=== PATIENT | female | born 1930 | race Caucasian/White ===

== ENCOUNTER 2019-03-01 19:44 | Emergency (ER) | payer MEDICARE, OTHER ==
[~2019-03-01] VITALS: Ht 167.7 cm; Wt 75.0 kg
[2019-03-01] MEDS ORDERED: NS IV 1000 ML 1,000 ML ONE (20:15)
--- NOTE | 2019-03-01 20:15 | NUR ---
PT. BLOOD PRESSURE DROPPED TO 58/35 AND PT BECAME UNRESPONSIVE. IV FLUIDS WERE STARTED WIDE AND THE PT. STARTED RESPONDING AND NOW HERE BP IS 132/61
[2019-03-01 20:33] LABS: HEMATOCRIT 24 % (35-52); HEMOGLOBIN 7.6 G/DL (11.5-16.0); MEAN CORPUSCULAR HEMOGLOBIN 26 PG (25-34); MEAN CORPUSCULAR HGB CONC 31 G/DL (32-36); MEAN CORPUSCULAR VOLUME 82 FL (80-99); MEAN PLATELET VOLUME 11.1 FL (7.4-10.4); MONOCYTES % (AUTO) 11 % (0-12); NEUTROPHILS % (AUTO) 75 % (42-75); PLATELET COUNT 171 10^3/uL (130-400); RED CELL DISTRIBUTION WIDTH 15.2 % (10.0-14.5); WHITE BLOOD COUNT 4.1 10^3/uL (4.3-11.0)
--- NOTE | 2019-03-01 20:33 | ED General ---
General Chief Complaint: Trauma-Non Activation Stated Complaint: FALL Source of Information: Patient, EMS History of Present Illness Date Seen by Provider: Mar 01, 2019 Time Seen by Provider: 19:48 Initial Comments 88-year-old female presenting by EMS after having a fall at home. She states that she's been having increased swelling in her legs and increased weakness. She was having weakness in his legs which caused her to have a fall tonight. She denies losing consciousness but is not sure. She states that she did have a lot of bleeding and has pain to her head and face where she had hit her head and has bleeding. She does take Xarelto as a blood thinner for atrial fibrillation. Allergies and Home Medications Allergies Coded Allergies: No Known Drug Allergies (Unverified , 03/01/19) Patient Home Medication List Home Medication List Reviewed: Yes Review of Systems Review of Systems Constitutional: No chills, No fever; malaise, weakness (general) EENTM: No ear discharge, No ear pain, No blurred vision, No double vision, No eye pain, No dental problems, No hoarseness, No epistaxis, No nose congestion, No nose pain, No throat pain Respiratory: No cough, No dyspnea on exertion, No short of breath, No stridor, No wheezing Cardiovascular: No chest pain; edema (BLE and worse in last few days) Gastrointestinal: No abdominal pain; nausea; No vomiting Genitourinary: No decreased output, No dysuria Musculoskeletal: No neck pain Skin: change in color (bruising to face and swelling to scalp and head from bruising and scalp laceration) Psychiatric/Neurological: Headache Hematologic/Lymphatic: Easy Bleeding (on xarelto), Easy Bruising (on xarelto) Past Tseejlw-Uuzhtm-Ufcpty Hx Past Med/Social Hx: Reviewed Nursing Past Med/Soc Hx Past Medical History Cardiac, Coronary Stent, Pacemaker Cardiomyopathy, Coronary Artery Disease, High Cholesterol, Hypertension Physical Exam Vital Signs Vital Signs - First Documented 03/01/19 03/01/19 19:47 22:34 Temp 35.4 Pulse 80 Resp 16 B/P (MAP) 138/85 (102) Pulse Ox 100 O2 Delivery Nasal Cannula O2 Flow Rate 2.00 Capillary Refill : Height, Weight, BMI Height: '" Weight: lbs. oz. kg; BMI Method: General Appearance: No Apparent Distress, WD/WN, Anxious, Chronically ill, Mild Distress HEENT: PERRL/EOMI, Normal ENT Inspection, Pharynx Normal Neck: Non Tender, Supple Respiratory: Chest Non Tender, Normal Breath Sounds, No Accessory Muscle Use, No Respiratory Distress Cardiovascular: Other (paced rhythm ) Gastrointestinal: Normal Bowel Sounds, No Pulsatile Mass, Soft Extremity: Pedal Edema (3+ pitting edema BLE) Neurologic/Psychiatric: Alert, Oriented x3, burrer hand II-XII Norm as Tested Skin: Cool, Pallor Procedures/Interventions Wound Location: Scalp Wound Length (cm): 1.1 Wound's Depth, Shape: sub Q Wound Explored: clean Staple Repair: Stapler 35W Number of Sutures: 4 Layer Closure?: 1 Progress/Results/Core Measures Suspected Sepsis SIRS Temperature: Pulse: Respiratory Rate: Laboratory Tests 03/01/19 20:23: White Blood Count 4.1L Blood Pressure / Mean: Laboratory Tests 03/01/19 20:23: Creatinine 1.78H, INR Comment 2.7H, Platelet Count 171, Total Bilirubin 0.4 Results/Orders Lab Results Laboratory Tests Test 03/01/19 20:23 Range/Units White Blood Count 4.1 L 4.3-11.0 10^3/uL Red Blood Count 2.97 L 4.35-5.85 10^6/uL Hemoglobin 7.6 L 11.5-16.0 G/DL Hematocrit 24 L 35-52 % Mean Corpuscular Volume 82 80-99 FL Mean Corpuscular Hemoglobin 26 25-34 PG Mean Corpuscular Hemoglobin Concent 31 L 32-36 G/DL Red Cell Distribution Width 15.2 H 10.0-14.5 % Platelet Count 171 130-400 10^3/uL Mean Platelet Volume 11.1 H 7.4-10.4 FL Neutrophils (%) (Auto) 75 42-75 % Lymphocytes (%) (Auto) 11 L 12-44 % Monocytes (%) (Auto) 11 0-12 % Eosinophils (%) (Auto) 2 0-10 % Basophils (%) (Auto) 1 0-10 % Neutrophils # (Auto) 3.1 1.8-7.8 X 10^3 Lymphocytes # (Auto) 0.5 L 1.0-4.0 X 10^3 Monocytes # (Auto) 0.4 0.0-1.0 X 10^3 Eosinophils # (Auto) 0.1 0.0-0.3 10^3/uL Basophils # (Auto) 0.0 0.0-0.1 10^3/uL Prothrombin Time 29.8 H 12.2-14.7 SEC INR Comment 2.7 H 0.8-1.4 Activated Partial Thromboplast Time 39 H 24-35 SEC Sodium Level 123 *L 135-145 MMOL/L Potassium Level 4.9 3.6-5.0 MMOL/L Chloride Level 90 L 98-107 MMOL/L Carbon Dioxide Level 23 21-32 MMOL/L Anion Gap 10 5-14 MMOL/L Blood Urea Nitrogen 32 H 7-18 MG/DL Creatinine 1.78 H 0.60-1.30 MG/DL Estimat Glomerular Filtration Rate 27 BUN/Creatinine Ratio 18 Glucose Level 133 H 70-105 MG/DL Calcium Level 8.3 L 8.5-10.1 MG/DL Corrected Calcium 9.1 8.5-10.1 MG/DL Total Bilirubin 0.4 0.1-1.0 MG/DL Aspartate Amino Transf (AST/SGOT) 21 5-34 U/L Alanine Aminotransferase (ALT/SGPT) 12 0-55 U/L Alkaline Phosphatase 40 40-136 U/L Total Protein 4.8 L 6.4-8.2 GM/DL Albumin 3.0 L 3.2-4.5 GM/DL My Orders Orders - ISH HERRERA MD Comprehensive Metabolic Panel (03/01/19 20:14) Ua Culture If Indicated (03/01/19 20:14) Ed Iv/Invasive Line Start (03/01/19 20:14) Cbc With Automated Diff (03/01/19 20:14) Protime With Inr (03/01/19 20:14) Partial Thromboplastin Time (03/01/19 20:14) Ekg Tracing (03/01/19 20:14) Continuous Ekg Monitoring (03/01/19 20:14) Ct Head/Face/Cervical Wo (03/01/19 20:14) Ns Iv 1000 Ml (Sodium Chloride 0.9%) (03/01/19 20:15) Red Cells Leukocytes Reduced (03/01/19 20:56) Vital Signs: Special (Order) (03/01/19 20:56) Consent-Obtain Consent For (03/01/19 20:56) Monitor S/S Transfusion Reacti (03/01/19 20:56) Ns Iv 500 Ml (Sodium Chloride 0.9%) (03/01/19 20:56) Type And Screen (03/01/19 20:56) Hemoglobin (03/01/19 22:54) Ns Iv 1000 Ml (Sodium Chloride 0.9%) (03/01/19 23:00) Medications Given in ED Current Medications Medications Dose Ordered Sig/Maty Route Start Time Stop Time Status Last Admin Dose Admin Sodium Chloride 1,000 ml @ STK-MED ONCE .ROUTE 03/01/19 20:15 03/01/19 20:19 DC 03/01/19 20:15 2,015 MLS/HR Vital Signs/I&O 03/01/19 03/01/19 19:47 22:34 Temp 35.4 36.7 Pulse 80 60 Resp 16 B/P (MAP) 138/85 (102) 147/93 Pulse Ox 100 100 O2 Delivery Nasal Cannula Nasal Cannula O2 Flow Rate 2.00 03/02/19 00:00 Intake Total 2000 ml Balance 2000 ml Capillary Refill : Progress Note #1: Progress Note check labs and CT head,face, cervical spine to evaluate for fractures or intracranial hemorrhage. Progress Note #2: Progress Note Before the patient could leave the room to get to CT she had a lot of bleeding from a small laceration on her left scalp so I cleaned it and then using just the stapler I applied 4 ariana to close the laceration to the anterior left frontal scalp to control the bleeding. Then a pressure dressing was applied to help with the bleeding and swelling. shortly after this and before she could go to CT she had a drop in her blood pressure and became unresponsive. With this she was placed in trendelenberg an given 2 L NS by pressure bag infusion. This did help with her blood pressure and she became responsive again. She had improved responsiveness and was able to tolerate transport to CT. After return from CT she had no evidence of actute hemorrhage on imaging. By this point her labs had come back showing hyponatremia with a sodium of 123. Her hemoglobin also came back low at 7.6. This likely was representing an acute anemia with a low hemoglobin from acute blood loss. When reviewing the results with the patient and family they requested to go to [facility] since that is w here her cytogenetic technician and primary providers are located. Progress Note #3: Progress Note Discussed with Dr. Flynn from [facility] emergency department and he accepted the patient in transfer ECG Initial ECG Impression Date: Mar 01, 2019 Initial ECG Impression Time: 20:57 Initial ECG Rate: 60 Initial ECG Comparisson: No Previous ECG Available Comment Ventricular paced complexes with a heart rate is 60 bpm. QT interval 496 ms QTc interval 496 ms. There is no acute ST elevation. There is some artifact on the tracing. There is no prior tracing available for comparison. Diagnostic Imaging Diagonstic Imaging: CT Plain Films/CT/US/NM/MRI: facial bones, c-spine, head Comments NAME: UMER FRYE [facility] REC#: [id number] PT STATUS: REG ER : [id number] PHYSICIAN: ISH HERRERA MD ADMIT DATE: 03/01/19/ER FS Draft Date of Exam:03/01/19 CT HEAD/FACE/CERVICAL WO PROCEDURE: CT head, face, and cervical spine without contrast. TECHNIQUE: Multiple contiguous axial images were obtained through the head, neck, and facial bones without the use of intravenous contrast. Sagittal and coronal reformations through the cervical spine and facial bones were also performed. Auto Exposure Controls were utilized during the CT exam to meet ALARA standards for radiation dose reduction. INDICATION: Fall with trauma to head. COMPARISON: None FINDINGS: CT head: The ventricles and cortical sulci are diffusely prominent, compatible with age-related volume loss. There are confluent areas of abnormal, low attenuation in the periventricular white matter. This is consistent with small vessel ischemic changes; age-indeterminate. There is no prior study available for comparison. There is no midline shift or mass-effect. No acute intra-axial hemorrhage is seen. There are no abnormal areas of increased or decreased density to suggest acute hemorrhage or edema. No extra-axial masses or collections are present. The bony calvarium is intact. CT FACIAL BONES: There is acute appearing fracture of the bilateral nasal bones, left more conspicuous than right (image 84, series 8). There is no significant displacement of the fracture fragments. Nasal septum is mildly deviated to the left anteriorly, but this appears to be on a congenital or developmental basis. Nasal septum otherwise appears to be intact. There is mild soft tissue swelling overlying the nose. No unexpected radiopaque foreign bodies are seen. A small amount of soft tissue emphysema is also noted. Paranasal sinuses show minimal mucosal thickening of the right maxillary sinus. There may be small air-fluid level within the right maxillary sinus as well. Remainder of the paranasal sinuses show minimal scattered mucosal thickening. There is no fracture of the paranasal sinuses. There is no fracture of the orbits. Globes are symmetric. Patient is status post bilateral cataract surgery. There is periorbital soft tissue edema asymmetrically on the left. No unexpected radiopaque foreign bodies are identified. Zygomatic arches are intact bilaterally. Bilateral medial and lateral pterygoid plates are also intact. Degenerative changes of the bilateral temporomandibular joints are noted. Mandible is otherwise intact without evidence acute fracture or dislocation. CT cervical spine: Evaluation of the static alignment shows mild grade 1 anterolisthesis at the C4-C5 and C7-T1 levels. There is no evidence of jumped facets. Vertebral body heights are maintained. There is no evidence of acute fracture. No bony fragments are seen within the spinal canal. There are moderate multilevel degenerative changes consisting of intervertebral disc height loss as well as multilevel anterior and posterior disc osteophyte complex formations and multilevel facet arthropathy. Pre and paravertebral soft tissue structures are unremarkable. Note is made of calcified carotid atherosclerosis. Included portions of the lung bases show no additional acute abnormalities. IMPRESSION: 1. No acute intracranial abnormality. No CT evidence of mass, acute infarct or intracranial hemorrhage. 2. Small vessel ischemic changes in the periventricular and subcortical white matter; likely chronic. 3. Acute nondisplaced fractures of the bilateral nasal bones. 4. No acute fracture or dislocation of the cervical spine. 5. Mild mucosal thickening with small air-fluid level in the right maxillary sinus. Please correlate for underlying acute sinusitis. Dictated on workstation # [id number] Dict: 03/01/192056 Trans: 03/01/19 2108 DOTTIE [id number] Interpreted by: BEST MENDOZA MD Electronically signed by: Departure Impression Primary Impression: Anemia associated with acute blood loss Additional Impressions: Scalp laceration Qualified Codes: S01.01XA - Laceration without foreign body of scalp, initial encounter Skin tear Fall at home Qualified Codes: W19.XXXA - Unspecified fall, initial encounter; Y92.009 - Unspecified place in unspecified non-institutional (private) residence as the place of occurrence of the external cause Hyponatremia Disposition: 02 XFER SHT-TRM HOSP Condition: Stable Transfer Transfer Reason: Patient preference Time Spoke to Accepting Phy: 22:16 Transfer Progress Notes D/w Dr. Flynn in the ED at [facility] and since the patient had a fall at home she would be considered a trauma pt and need to come to the ED there initially before admit for her other issues. Transfer Facility: [facility] Method of Transfer: EMS ISH HERRERA MD Mar 01, 2019 20:33
[2019-03-01 20:34] LABS: BASOPHILS % (AUTO) 1 % (0-10); EOSINOPHILS # (AUTO) 0.1 10^3/uL (0.0-0.3); EOSINOPHILS % (AUTO) 2 % (0-10); LYMPHOCYTES # (AUTO) 0.5 X 10^3 (1.0-4.0); LYMPHOCYTES % (AUTO) 11 % (12-44); MONOCYTES # (AUTO) 0.4 X 10^3 (0.0-1.0); NEUTROPHILS # (AUTO) 3.1 X 10^3 (1.8-7.8)
[2019-03-01 20:47] LABS: INR 2.7 (0.8-1.4); PROTHROMBIN TIME PATIENT 29.8 SEC (12.2-14.7)
[2019-03-01] MEDS ORDERED: NS IV 500 ML 500 ML IV SCH (20:56)
[2019-03-01 21:03] LABS: BILIRUBIN,TOTAL 0.4 MG/DL (0.1-1.0); CALCIUM 8.3 MG/DL (8.5-10.1); CREATININE SERUM 1.78 MG/DL (0.60-1.30); POTASSIUM 4.9 MMOL/L (3.6-5.0); TOTAL PROTEIN 4.8 GM/DL (6.4-8.2)
--- NOTE | 2019-03-01 21:08 | Diagnostic Imaging Report ---
PROCEDURE: CT head, face, and cervical spine without contrast. TECHNIQUE: Multiple contiguous axial images were obtained through the head, neck, and facial bones without the use of intravenous contrast. Sagittal and coronal reformations through the cervical spine and facial bones were also performed. Auto Exposure Controls were utilized during the CT exam to meet ALARA standards for radiation dose reduction. INDICATION: Fall with trauma to head. COMPARISON: None FINDINGS: CT head: The ventricles and cortical sulci are diffusely prominent, compatible with age-related volume loss. There are confluent areas of abnormal, low attenuation in the periventricular white matter. This is consistent with small vessel ischemic changes; age-indeterminate. There is no prior study available for comparison. There is no midline shift or mass-effect. No acute intra-axial hemorrhage is seen. There are no abnormal areas of increased or decreased density to suggest acute hemorrhage or edema. No extra-axial masses or collections are present. The bony calvarium is intact. CT FACIAL BONES: There is acute appearing fracture of the bilateral nasal bones, left more conspicuous than right (image 84, series 8). There is no significant displacement of the fracture fragments. Nasal septum is mildly deviated to the left anteriorly, but this appears to be on a congenital or developmental basis. Nasal septum otherwise appears to be intact. There is mild soft tissue swelling overlying the nose. No unexpected radiopaque foreign bodies are seen. A small amount of soft tissue emphysema is also noted. Paranasal sinuses show minimal mucosal thickening of the right maxillary sinus. There may be small air-fluid level within the right maxillary sinus as well. Remainder of the paranasal sinuses show minimal scattered mucosal thickening. There is no fracture of the paranasal sinuses. There is no fracture of the orbits. Globes are symmetric. Patient is status post bilateral cataract surgery. There is periorbital soft tissue edema asymmetrically on the left. No unexpected radiopaque foreign bodies are identified. Zygomatic arches are intact bilaterally. Bilateral medial and lateral pterygoid plates are also intact. Degenerative changes of the bilateral temporomandibular joints are noted. Mandible is otherwise intact without evidence acute fracture or dislocation. CT cervical spine: Evaluation of the static alignment shows mild grade 1 anterolisthesis at the C4-C5 and C7-T1 levels. There is no evidence of jumped facets. Vertebral body heights are maintained. There is no evidence of acute fracture. No bony fragments are seen within the spinal canal. There are moderate multilevel degenerative changes consisting of intervertebral disc height loss as well as multilevel anterior and posterior disc osteophyte complex formations and multilevel facet arthropathy. Pre and paravertebral soft tissue structures are unremarkable. Note is made of calcified carotid atherosclerosis. Included portions of the lung bases show no additional acute abnormalities. IMPRESSION: 1. No acute intracranial abnormality. No CT evidence of mass, acute infarct or intracranial hemorrhage. 2. Small vessel ischemic changes in the periventricular and subcortical white matter; likely chronic. 3. Acute nondisplaced fractures of the bilateral nasal bones. 4. No acute fracture or dislocation of the cervical spine. 5. Mild mucosal thickening with small air-fluid level in the right maxillary sinus. Please correlate for underlying acute sinusitis. Dictated by: Dictated on workstation # [id number]
--- NOTE | 2019-03-01 21:12 | NUR ---
PT. AND FAMILY REPORTED THEY WANT TO GO THE [facility] BECAUSE THAT IS WHERE HER DOCTOR IS. HER DOCTOR IS DOCTOR MILLER.
[2019-03-01 22:34] VITALS: BP 147/93
--- NOTE | 2019-03-01 22:44 | NUR ---
REPORT GIVEN TO DIANNA. PT. WILL BE GOING TO [facility].
[2019-03-01] MEDS ORDERED: NS IV 1000 ML 1,000 ML IV SCH (23:00)
== END 2019-03-01 23:07 | disposition short-term general hospital (02) ==
LOC: ER FS 19:47
DX: S01.01XA Laceration without foreign body of scalp, initial encounter (principal); D50.0 Iron deficiency anemia secondary to blood loss (chronic); E87.1 Hypo-osmolality and hyponatremia; I10 Essential (primary) hypertension; E78.00 Pure hypercholesterolemia, unspecified; I25.10 Atherosclerotic heart disease of native coronary artery without angina pectoris; Z79.01 Long term (current) use of anticoagulants; Z95.5 Presence of coronary angioplasty implant and graft; Z95.0 Presence of cardiac pacemaker; W19.XXXA Unspecified fall, initial encounter; Y92.009 Unspecified place in unspecified non-institutional (private) residence as the place of occurrence of the external cause
CPT/HCPCS: 36415; 70450; 70486; 72125; 80053; 85025; 85610; 85730; 93005; 93041